=== PATIENT | male | born 1945 | race Caucasian/White ===

== ENCOUNTER 2017-05-13 07:12 | Outpatient (CLI) | payer OTHER | END 2017-05-13 07:33 | disposition home or self-care (01) | LOC: LAB 07:12 | DX: M81.0 Age-related osteoporosis without current pathological fracture (principal); D51.1 Vitamin B12 deficiency anemia due to selective vitamin B12 malabsorption with proteinuria; K91.2 Postsurgical malabsorption, not elsewhere classified; Z85.028 Personal history of other malignant neoplasm of stomach; C61 Malignant neoplasm of prostate; Z85.46 Personal history of malignant neoplasm of prostate; C44.121 Squamous cell carcinoma of skin of unspecified eyelid, including canthus; C44.702 Unspecified malignant neoplasm of skin of right lower limb, including hip; I10 Essential (primary) hypertension; E78.2 Mixed hyperlipidemia; K40.00 Bilateral inguinal hernia, with obstruction, without gangrene, not specified as recurrent ==

== ENCOUNTER 2017-08-15 09:24 | Outpatient (CLI) | payer OTHER | END 2017-08-15 12:27 | disposition home or self-care (01) | LOC: MRI 09:24 | DX: M25.561 Pain in right knee (principal) | CPT/HCPCS: 73721 ==

== ENCOUNTER 2019-10-22 08:54 | Outpatient (CLI) | payer OTHER | END 2019-10-22 08:56 | disposition home or self-care (01) | LOC: NUCLEAR 08:54 | PROVIDERS: ATTEND Internal Medicine | DX: M89.8X0 Other specified disorders of bone, multiple sites (principal); C61 Malignant neoplasm of prostate | CPT/HCPCS: 78306; A9503 ==

== ENCOUNTER 2019-10-24 10:23 | Outpatient (CLI) | payer OTHER | END 2019-10-24 10:32 | disposition home or self-care (01) | LOC: TOM 10:23 | PROVIDERS: ATTEND Internal Medicine | DX: R91.1 Solitary pulmonary nodule (principal) ==

== ENCOUNTER 2022-07-12 08:41 | Outpatient (CLI) | payer OTHER | END 2022-07-12 08:47 | disposition home or self-care (01) | LOC: TOM 08:41 | PROVIDERS: ATTEND Specialist | DX: K40.91 Unilateral inguinal hernia, without obstruction or gangrene, recurrent (principal) ==

== ENCOUNTER 2023-03-26 16:05 | Emergency (ER) | payer OTHER ==
[~2023-03-26] VITALS: Ht 160 cm; Wt 64.4 kg
[~2023-03-26 16:05] MED LIST: COZAAR100 MG PO; LEVOTHYROXINE25 MCG PO; ZOCOR20 MG PO
[2023-03-26] MEDS ORDERED: NEURIN (16:21)
[2023-03-26 18:44] LABS: PH,URINE 5.5 (5.0-8.0); URINE APPEARANCE Clear; URINE BILIRRUBIN Negative (NEGATIVE); URINE BLOOD Small; URINE COLOR Yellow; URINE GLUCOSE Negative (NEGATIVE); URINE LEUKOCYTE Large; URINE NITRATE Positive; URINE PROTEIN Negative (NEGATIVE); URINE UROBILINOGEN 0.2 E.U./dl
[2023-03-26 18:45] LABS: URINE RBC 3.4 uL (0.0-20.8); URINE WBC 528.4 uL (0.0-23.2)
[2023-03-26 18:56] LABS: URINE EPITHELIAL CELLS 0.9 uL (0.0-38.8)
[2023-03-26 19:28] LABS: HEMATOCRIT 42.6 % (39.0-48.0); HEMOGLOBIN 14.5 g/dL (13-16.00); MEAN CELL VOLUME 89.4 fL (80.0-100.00); MEAN CORPUSCULAR HEMOGLOBIN 30.4 pg (27.00-32.0); PLATELET COUNT 226 K/uL (150-450); RED BLOOD COUNT 4.77 M/uL (4.00-6.00); RED CELL DISTRIBUTION WIDTH 13.8 % (11.5-14.5)
[2023-03-26 19:50] LABS: ALBUMIN 4.2 gm/dL (3.4-5.0); BILIRUBIN TOTAL 1.21 mg/dL (0.3-1.2); CALCIUM 9.4 mg/dL (8.5-10.1); CREATININE SERUM 1.21 mg/dL (0.70-1.30); GLOBULINA 3.8 G/DL (2.4-3.5); POTASSIUM 4.8 mEq/L (3.5-5.1)
== END 2023-03-26 21:38 | disposition home or self-care (01) ==
LOC: ER 16:05
PROVIDERS: General Practice
DX: N39.0 Urinary tract infection, site not specified (principal); I10 Essential (primary) hypertension; E78.00 Pure hypercholesterolemia, unspecified; E03.9 Hypothyroidism, unspecified
CPT/HCPCS: 36415; 96365; 99284; J0744; J1885

== ENCOUNTER 2024-06-10 13:59 | Inpatient (IN) | payer OTHER ==
[~2024-06-10] VITALS: Ht 160 cm; Wt 64.9 kg
[~2024-06-10 13:59] MED LIST changes: +NEURIN
--- NOTE | 2024-06-10 14:10 | NUR ---
PACIENTE ALERTA Y ORIENTADO X3 EL CUAL NO PRESENTA NINGUN SINTOMA DE DEBILIDAD Y/O FIEBRE. PACIENTE INDICA HABERSE REALIZADO CBC EN EL TIFFANY DE HOY CON RESULTADO DE PLAQUETAS EN 69.
[2024-06-10 14:16] VITALS: O2SAT 98
[2024-06-10] MEDS ORDERED: 0.9 % SODIUM CHLORIDE 250 ML IV ONE (16:00)
[2024-06-10 17:15] LABS: HEMATOCRIT 42.6 % (39.0-48.0); HEMOGLOBIN 14.2 g/dL (13-16.00); MEAN CELL VOLUME 90.8 fL (80.0-100.00); MEAN CORPUSCULAR HEMOGLOBIN 30.3 pg (27.00-32.0); MEAN CORPUSCULAR HGB CONC 33.3 g/dl (32.0-36.0); RED BLOOD COUNT 4.69 M/uL (4.00-6.00)
[2024-06-10 17:16] LABS: PLATELET COUNT 62 K/uL (150-450)
--- NOTE | 2024-06-10 17:30 | NUR ---
SE EJECUTAN ORDENES MEDICAS EN LOPEZ TOTALIDAD
[2024-06-10 17:35] LABS: ALBUMIN 3.6 gm/dL (3.4-5.0); BILIRUBIN TOTAL 1.19 mg/dL (0.3-1.2); CALCIUM 8.6 mg/dL (8.5-10.1); CREATININE SERUM 1.32 mg/dL (0.70-1.30); GFR 52.32; GLOBULINA 3.7 G/DL (2.4-3.5); POTASSIUM 4.14 mEq/L (3.5-5.1); TOTAL PROTEIN 7.3 gm/dL (6.4-8.2)
[2024-06-10 17:36] LABS: PH,URINE 5.5 (5.0-8.0); URINE APPEARANCE Clear; URINE BILIRRUBIN Negative (NEGATIVE); URINE BLOOD NHT; URINE COLOR Yellow; URINE GLUCOSE Negative (NEGATIVE); URINE KETONE Negative (NEGATIVE); URINE LEUKOCYTE Negative; URINE NITRATE Negative; URINE PROTEIN Negative (NEGATIVE); URINE UROBILINOGEN 0.2 E.U./dl
[2024-06-10 17:40] LABS: URINE BACTERIA 9.7 uL (0.0-1933); URINE EPITHELIAL CELLS 1.4 uL (0.0-38.8); URINE RBC 4.4 uL (0.0-20.8)
[2024-06-10 17:47] LABS: URINE CAST 0.14 uL (0.0-1.40); URINE WBC 1.4 uL (0.0-23.2)
[2024-06-10 18:54] LABS: INR 0.98; PARTIAL THROMBOPLASTIN TIME 34.5 SECONDS (22.0-34.0); PROTHROMBIN TIME 10.7 SECONDS (9.0-11.5)
[2024-06-10] MEDS ORDERED: ACETAMINOPHEN 500 MG GEL..CAP PO PRN (23:00)
[2024-06-10] MEDS ORDERED: 0.9 % SODIUM CHLORIDE 1,000 ML IV SCH (23:00)
[2024-06-11] MEDS ORDERED: LEVOTHYROXINE SODIUM 25 MCG TABLET PO SCH (06:00)
[2024-06-11 06:51] LABS: HEMATOCRIT 42.1 % (39.0-48.0); HEMOGLOBIN 14.3 g/dL (13-16.00); MEAN CELL VOLUME 90.1 fL (80.0-100.00); MEAN CORPUSCULAR HEMOGLOBIN 30.7 pg (27.00-32.0); MEAN CORPUSCULAR HGB CONC 34.1 g/dl (32.0-36.0); RED BLOOD COUNT 4.67 M/uL (4.00-6.00); RED CELL DISTRIBUTION WIDTH 13.9 % (11.5-14.5)
[2024-06-11 08:00] VITALS: BP 164/78
[2024-06-11 08:31] LABS: PLATELET COUNT 50 K/uL (150-450)
[2024-06-11] MEDS ORDERED: LOSARTAN POTASSIUM 100 MG TABLET PO SCH (09:00)
[2024-06-11] MEDS ORDERED: AMLODIPINE BESYLATE 5 MG TABLET PO SCH (09:00)
[2024-06-11] MEDS ORDERED: ABANEU-SL TABL1 EACH SL (10:14)
[2024-06-11] MEDS ORDERED: VITAMIN B COMPLEX 1 EACH PO SCH (11:50)
[2024-06-11] MEDS ORDERED: Cyanocobalamin/Mecobalamin 1 TAB.SL SL SCH (11:51)
[2024-06-11] MEDS ORDERED: MULTIVIT INFUSN,ADULT 4,VIT K 10 ML VIAL IV NR (14:00)
[2024-06-11 17:55] VITALS: BP 138/76
[2024-06-12 01:00] VITALS: BP 147/75
[2024-06-12 06:37] LABS: HEMATOCRIT 40.2 % (39.0-48.0); HEMOGLOBIN 14.2 g/dL (13-16.00); MEAN CELL VOLUME 88.1 fL (80.0-100.00); MEAN CORPUSCULAR HEMOGLOBIN 31.1 pg (27.00-32.0); MEAN CORPUSCULAR HGB CONC 35.3 g/dl (32.0-36.0); RED BLOOD COUNT 4.56 M/uL (4.00-6.00)
[2024-06-12 06:38] LABS: BILIRUBIN TOTAL 0.54 mg/dL (0.3-1.2); CALCIUM 8.3 mg/dL (8.5-10.1); CREATININE SERUM 0.93 mg/dL (0.70-1.30); GFR 78.38; GLOBULINA 2.9 G/DL (2.4-3.5); POTASSIUM 4.3 mEq/L (3.5-5.1); TOTAL PROTEIN 5.9 gm/dL (6.4-8.2)
[2024-06-12 07:51] LABS: PLATELET COUNT 63 K/uL (150-450)
[2024-06-12 08:44] VITALS: BP 152/81
[2024-06-12] MEDS ORDERED: SIMVASTATIN 20 MG TABLET PO SCH (09:00)
[2024-06-12] MEDS ORDERED: MULTIVIT INFUSN,ADULT 4,VIT K 10 ML VIAL IV SCH (09:00)
[2024-06-12] MEDS ORDERED: AMLODIPINE BESYLATE 10 MG TABLET PO SCH (09:00)
== END 2024-06-12 11:14 | disposition home or self-care (01) | DRG 866 ==
LOC: ER 14:02 → MEDJ 22:52
PROVIDERS: Emergency Medicine; General Practice; Internal Medicine Hematology & Oncology; Preventive Medicine Public Health & General Preventive Medicine; ADMIT Student in an Organized Health Care Education/Training Program; ATTEND Student in an Organized Health Care Education/Training Program
DX: A90 Dengue fever [classical dengue] (principal); D69.6 Thrombocytopenia, unspecified